=== PATIENT | male | born 1945 | race Caucasian/White ===

== ENCOUNTER → 2017-12-16 | Outpatient (CLI) | payer OTHER ==
[~2017-12-16] MED LIST: AMLO5 PO; CALC.25 PO; CLON.1 PO; MEGESTROL400 MG/10 PO; PANT40 PO; Renvela800 MG PO; TAMS.4ER PO; Zofran4 MG PO
== END | disposition home or self-care (01) ==
LOC: OLS 07:43
PROVIDERS: Physician Assistant
DX: C61 Malignant neoplasm of prostate (principal)
CPT/HCPCS: 36415; 84153

== ENCOUNTER → 2018-03-15 | Outpatient (CLI) | payer OTHER ==
[2018-03-15 08:19] LABS: BASOPHILS ABSOLUTE AUTO 0.04 K/mm3 (0.00-0.23); BASOPHILS PERCENT AUTO 1 % (0-2); EOSINOPHILS ABSOLUTE AUTO 0.03 K/mm3 (0.00-0.68); EOSINOPHILS PERCENT AUTO 0 % (0-6); Hemoglobin 10.5 g/dL (13.5-17.5); IMMATURE GRAN ABSOLUTE AUTO 0.03 K/mm3 (0.00-0.10); IMMATURE GRAN PERCENT AUTO 0 % (0-1); LYMPHOCYTES ABSOLUTE AUTO 1.11 K/mm3 (0.84-5.20); LYMPHOCYTES PERCENT AUTO 15 % (21-46); MONOCYTES ABSOLUTE AUTO 0.56 K/mm3 (0.16-1.47); MONOCYTES PERCENT AUTO 8 % (4-13); Mean Corpuscular HGB 31.2 pg (26.0-34.0); Mean Corpuscular HGB Conc 31.8 g/dL (31.5-36.5); Mean Corpuscular Volume 98 fL (80-100); Mean Platelet Volume 11.6 fL (9.1-12.4); NEUTROPHILS ABSOLUTE AUTO 5.44 K/mm3 (1.96-9.15); NEUTROPHILS PERCENT AUTO 75 % (41-73); Platelet Count 119 K/mm3 (150-400); RDW Standard Deviation 54.5 fL (35.1-46.3); Red Blood Cell Count 3.37 M/mm3 (4.30-5.90); White Blood Cell Count 7.21 K/mm3 (4.00-11.30)
[2018-03-15 08:45] LABS: Albumin, Blood 3.4 g/dL (3.4-5.0); Albumin/Globulin Ratio 0.8 (0.8-1.8); Bilirubin, Total 0.3 mg/dL (0.1-1.0); Bun/Creatinine Ratio 16.1 (12.0-20.0); Calcium, Blood 8.8 mg/dL (8.5-10.1); Creatinine, Blood 3.84 mg/dL (0.60-1.20); Globulin, Blood 4.2 g/dL (2.2-4.0); Potassium, Blood 5.2 mmol/L (3.5-5.5); Total Protein, Blood 7.6 g/dL (6.4-8.2)
== END | disposition home or self-care (01) ==
LOC: LAB EV 08:14 → LAB SHORT 08:14
PROVIDERS: Physician Assistant Medical
DX: R11.0 Nausea (principal)
CPT/HCPCS: 80053; 83690; 85025

== ENCOUNTER → 2018-03-17 | Outpatient (CLI) | payer OTHER ==
[2018-03-17 10:41] LABS: BASOPHILS ABSOLUTE AUTO 0.02 K/mm3 (0.00-0.23); BASOPHILS PERCENT AUTO 0 % (0-2); EOSINOPHILS ABSOLUTE AUTO 0.06 K/mm3 (0.00-0.68); EOSINOPHILS PERCENT AUTO 1 % (0-6); Hematocrit 32.5 % (37.0-53.0); IMMATURE GRAN ABSOLUTE AUTO 0.02 K/mm3 (0.00-0.10); IMMATURE GRAN PERCENT AUTO 0 % (0-1); LYMPHOCYTES ABSOLUTE AUTO 1.21 K/mm3 (0.84-5.20); LYMPHOCYTES PERCENT AUTO 17 % (21-46); MONOCYTES ABSOLUTE AUTO 0.69 K/mm3 (0.16-1.47); MONOCYTES PERCENT AUTO 10 % (4-13); Mean Corpuscular HGB 30.5 pg (26.0-34.0); Mean Corpuscular HGB Conc 30.8 g/dL (31.5-36.5); Mean Corpuscular Volume 99 fL (80-100); NEUTROPHILS ABSOLUTE AUTO 5.28 K/mm3 (1.96-9.15); NEUTROPHILS PERCENT AUTO 73 % (41-73); Platelet Count 119 K/mm3 (150-400); RDW Coefficient Variation 14.9 % (11.7-14.2); Red Blood Cell Count 3.28 M/mm3 (4.30-5.90); White Blood Cell Count 7.28 K/mm3 (4.00-11.30)
[2018-03-17 10:58] LABS: Albumin, Blood 3.4 g/dL (3.4-5.0); Albumin/Globulin Ratio 0.9 (0.8-1.8); Bilirubin, Total 0.4 mg/dL (0.1-1.0); Bun/Creatinine Ratio 15.7 (12.0-20.0); Calcium, Blood 8.2 mg/dL (8.5-10.1); Creatinine, Blood 3.43 mg/dL (0.60-1.20); Globulin, Blood 3.6 g/dL (2.2-4.0); Potassium, Blood 5.8 mmol/L (3.5-5.5); Uric Acid, Blood 7.6 mg/dL (3.5-7.2)
== END | disposition home or self-care (01) ==
LOC: LAB 10:24 → LAB SHORT 10:24
PROVIDERS: Internal Medicine Hematology & Oncology
DX: Z01.818 Encounter for other preprocedural examination (principal); C61 Malignant neoplasm of prostate; R33.9 Retention of urine, unspecified; D69.6 Thrombocytopenia, unspecified
CPT/HCPCS: 80053; 84550; 85025; 85730

== ENCOUNTER → 2018-03-18 | Outpatient (CLI) | payer OTHER ==
[2018-03-18 12:37] LABS: Protein, Urine Quantitative 93.1 mg/dL (0.0-11.9)
== END ==
LOC: LAB EV 05:30 → LAB SHORT 05:30
PROVIDERS: Internal Medicine Nephrology
DX: N18.4 Chronic kidney disease, stage 4 (severe) (principal); D63.1 Anemia in chronic kidney disease; N25.81 Secondary hyperparathyroidism of renal origin; E55.9 Vitamin D deficiency, unspecified; E78.00 Pure hypercholesterolemia, unspecified; R76.9 Abnormal immunological finding in serum, unspecified; R94.5 Abnormal results of liver function studies; R94.6 Abnormal results of thyroid function studies; D51.8 Other vitamin B12 deficiency anemias; D52.8 Other folate deficiency anemias; D50.9 Iron deficiency anemia, unspecified
CPT/HCPCS: 81050; 82043; 84156

== ENCOUNTER → 2018-03-21 | Outpatient (CLI) | payer OTHER | END | disposition home or self-care (01) | LOC: LAB SHORT 16:23 → LAB EV 16:23 | DX: N30.01 Acute cystitis with hematuria (principal) | CPT/HCPCS: 87086; 87147 ==

== ENCOUNTER → 2018-04-11 | Outpatient (CLI) | payer OTHER ==
[2018-04-11 17:06] LABS: Albumin, Blood 3.4 g/dL (3.4-5.0); Albumin/Globulin Ratio 1.1 (0.8-1.8); Bilirubin, Total 0.3 mg/dL (0.1-1.0); Bun/Creatinine Ratio 18.8 (12.0-20.0); Calcium, Blood 8.1 mg/dL (8.5-10.1); Creatinine, Blood 3.4 mg/dL (0.60-1.20); Globulin, Blood 3.2 g/dL (2.2-4.0); Potassium, Blood 5.8 mmol/L (3.5-5.5); Total Protein, Blood 6.6 g/dL (6.4-8.2)
== END ==
LOC: LAB SHORT 16:00 → LAB 16:00
PROVIDERS: Internal Medicine Hematology & Oncology
DX: C25.9 Malignant neoplasm of pancreas, unspecified (principal)
CPT/HCPCS: 80053; 86301

== ENCOUNTER → 2018-05-16 | Outpatient (CLI) | payer OTHER | END | disposition home or self-care (01) | LOC: LAB SHORT 10:50 → LAB 10:50 | DX: C25.9 Malignant neoplasm of pancreas, unspecified (principal) | CPT/HCPCS: 86301 ==

== ENCOUNTER → 2018-05-23 | Outpatient (CLI) | payer OTHER ==
[2018-05-23 20:27] LABS: Albumin, Blood 3.1 g/dL (3.4-5.0); Bilirubin, Total 0.3 mg/dL (0.1-1.0); Bun/Creatinine Ratio 11.3 (12.0-20.0); Calcium, Blood 8.5 mg/dL (8.5-10.1); Creatinine, Blood 3.63 mg/dL (0.60-1.20); Globulin, Blood 3.1 g/dL (2.2-4.0); Potassium, Blood 5.2 mmol/L (3.5-5.5); Total Protein, Blood 6.2 g/dL (6.4-8.2)
== END ==
LOC: LAB 09:11 → LAB SHORT 09:11
PROVIDERS: Internal Medicine Hematology & Oncology
DX: C25.9 Malignant neoplasm of pancreas, unspecified (principal)
CPT/HCPCS: 80053

== ENCOUNTER → 2018-06-20 | Outpatient (CLI) | payer OTHER ==
[2018-06-20 18:01] LABS: Bilirubin, Total 0.3 mg/dL (0.1-1.0); Bun/Creatinine Ratio 14.2 (12.0-20.0); Calcium, Blood 8.3 mg/dL (8.5-10.1); Creatinine, Blood 3.52 mg/dL (0.60-1.20); Globulin, Blood 3.1 g/dL (2.2-4.0); Potassium, Blood 5.3 mmol/L (3.5-5.5); Total Protein, Blood 6.1 g/dL (6.4-8.2)
== END ==
LOC: LAB 10:00 → LAB SHORT 10:00
PROVIDERS: Internal Medicine Hematology & Oncology
DX: C25.9 Malignant neoplasm of pancreas, unspecified (principal)
CPT/HCPCS: 80053; 86301

== ENCOUNTER → 2018-08-08 | Outpatient (CLI) | payer OTHER | END | disposition home or self-care (01) | LOC: LAB SHORT 08:45 → LAB 08:45 | DX: N18.9 Chronic kidney disease, unspecified (principal); D63.1 Anemia in chronic kidney disease | CPT/HCPCS: 36415; 85018 ==

== ENCOUNTER → 2019-02-11 | Outpatient (CLI) | payer OTHER ==
[2019-02-11 14:00] LABS: BASOPHILS ABSOLUTE AUTO 0.05 K/mm3 (0.00-0.23); BASOPHILS PERCENT AUTO 0 % (0-2); EOSINOPHILS ABSOLUTE AUTO 0.01 K/mm3 (0.00-0.68); EOSINOPHILS PERCENT AUTO 0 % (0-6); Hematocrit 37.1 % (37.0-53.0); IMMATURE GRAN ABSOLUTE AUTO 0.09 K/mm3 (0.00-0.10); IMMATURE GRAN PERCENT AUTO 1 % (0-1); LYMPHOCYTES PERCENT AUTO 10 % (21-46); MONOCYTES ABSOLUTE AUTO 2.04 K/mm3 (0.16-1.47); MONOCYTES PERCENT AUTO 13 % (4-13); Mean Corpuscular HGB 31.7 pg (26.0-34.0); Mean Corpuscular HGB Conc 32.3 g/dL (31.5-36.5); Mean Corpuscular Volume 98 fL (80-100); NEUTROPHILS ABSOLUTE AUTO 12.04 K/mm3 (1.96-9.15); NEUTROPHILS PERCENT AUTO 77 % (41-73); Platelet Count 149 K/mm3 (150-400); RDW Standard Deviation 60.8 fL (35.1-46.3); Red Blood Cell Count 3.79 M/mm3 (4.30-5.90); White Blood Cell Count 15.73 K/mm3 (4.00-11.30)
[2019-02-11 14:33] LABS: Albumin, Blood 2.9 g/dL (3.4-5.0); Albumin/Globulin Ratio 0.9 (0.8-1.8); Bilirubin, Total 1.8 mg/dL (0.1-1.0); Bun/Creatinine Ratio 6.2 (12.0-20.0); Calcium, Blood 8.7 mg/dL (8.5-10.1); Creatinine, Blood 5.52 mg/dL (0.60-1.20); Globulin, Blood 3.4 g/dL (2.2-4.0); Potassium, Blood 3.7 mmol/L (3.5-5.5); Total Protein, Blood 6.3 g/dL (6.4-8.2)
== END | disposition home or self-care (01) ==
LOC: LAB SHORT 13:56 → LAB EV 13:56
PROVIDERS: General Practice
DX: C25.9 Malignant neoplasm of pancreas, unspecified (principal)
CPT/HCPCS: 80053; 85025

== ENCOUNTER 2019-02-14 20:10 | Inpatient (IN) | payer OTHER ==
[~2019-02-14] VITALS: Ht 172.7 cm; Wt 58.3 kg
[2019-02-14] MEDS ORDERED: VALACYCLOVIR1000 MG PO (20:24)
[2019-02-14] MEDS ORDERED: SEVEC800 (20:24)
[2019-02-14 21:42] LABS: BASOPHILS ABSOLUTE AUTO 0.04 K/mm3 (0.00-0.23); BASOPHILS PERCENT AUTO 0 % (0-2); EOSINOPHILS PERCENT AUTO 0 % (0-6); Hematocrit 35.4 % (37.0-53.0); Hemoglobin 11.1 g/dL (13.5-17.5); IMMATURE GRAN ABSOLUTE AUTO 0.13 K/mm3 (0.00-0.10); IMMATURE GRAN PERCENT AUTO 1 % (0-1); LYMPHOCYTES ABSOLUTE AUTO 1.88 K/mm3 (0.84-5.20); LYMPHOCYTES PERCENT AUTO 10 % (21-46); MONOCYTES PERCENT AUTO 13 % (4-13); Mean Corpuscular HGB 30.8 pg (26.0-34.0); Mean Corpuscular HGB Conc 31.4 g/dL (31.5-36.5); Mean Corpuscular Volume 98 fL (80-100); Mean Platelet Volume 12.1 fL (9.1-12.4); NEUTROPHILS ABSOLUTE AUTO 15.34 K/mm3 (1.96-9.15); NEUTROPHILS PERCENT AUTO 77 % (41-73); Platelet Count 166 K/mm3 (150-400); RDW Coefficient Variation 16.6 % (11.7-14.2); RDW Standard Deviation 59.7 fL (35.1-46.3); White Blood Cell Count 19.89 K/mm3 (4.00-11.30)
[2019-02-14 22:02] LABS: Albumin, Blood 2.7 g/dL (3.4-5.0); Albumin/Globulin Ratio 0.7 (0.8-1.8); Bilirubin, Total 1.9 mg/dL (0.1-1.0); Calcium, Blood 8.9 mg/dL (8.5-10.1); Creatinine, Blood 6.73 mg/dL (0.60-1.20); Globulin, Blood 3.7 g/dL (2.2-4.0); Potassium, Blood 3.6 mmol/L (3.5-5.5); Total Protein, Blood 6.4 g/dL (6.4-8.2)
[2019-02-14 22:18] LABS: Acetaminophen, Random <2.0 ug/mL (10.0-30.0); Ethanol (Alcohol), Blood, Med <3 mg/dL
[2019-02-14 22:24] LABS: Salicylate <1.7 mg/dL (2.8-20.0)
[2019-02-14 22:47] LABS: Influenza A Negative (NEGATIVE); Influenza B Negative (NEGATIVE)
[2019-02-14 23:27] LABS: Source, Urine Clean Catch
[2019-02-14 23:30] LABS: Blood, Urine 5+ (Neg); Glucose Qualitative, Urine Neg (Neg); Ketones, Urine Neg (Neg); Leukocyte Esterase, Urine 1+ (Neg); Nitrite, Urine Neg (Neg); Protein, Urine 4+ (Neg); Urobilinogen, Urine NORM (Normal)
[2019-02-14 23:36] LABS: Appearance, Urine Hazy (Clear); Bilirubin, Urine 1+ (Neg); Color, Urine Amber (P-Yellow)
[2019-02-14 23:37] LABS: Bacteria Few /hpf; Hyaline Casts 25-50 /lpf (0-2); Red Blood Cells, Urine TNTC /hpf (0-2); Squamous Epithelial Cells Rare /hpf (Few)
[2019-02-14 23:51] LABS: U Amphetamine Screen Not Detected; U Barbituate Screen Not Detected; U Benzodiazapine Screen Not Detected; U Buprenorphine Screen Not Detected; U Cannabinoids Screen Not Detected; U Cocaine Screen Not Detected; U Methadone Screen Not Detected; U Methamphetamine Screen Not Detected; U Opiates Screen Not Detected; U Oxycodone Screen Not Detected; U Phencyclidine Screen Not Detected; U Propoxyphene Screen Not Detected
--- NOTE | 2019-02-15 02:59 | NUR ---
PATIENT IS A NEW ADMIT FROM ED.. THREE PERSON TRANSFER FROM [facility] TO BED. AXO 2-3, SLOW TO RESPOND. AIRBORNE PRECAUTIONS...SHINGLES. PIV INTACT IV ABX INFUSED. DENIES PAIN, SOB, AND N/V. ONE TO TWO PERSON ASSIST TO BSC. ORIENTED TO ROOM AND CALL LIGHT SYSTEM.
--- NOTE | 2019-02-15 03:34 | NUR ---
SHIFT SUMMARY PATIENT HAD NO ACUTE CHANGES OBSERVED THIS SHIFT. AXO 2-3 W/CONFUSION AND SLOW TO RESPOND. AIRBORNE PRECAUTIONS; SHINGLES. PIV REMAINS INTACT. IV ABX INFUSED. DENIES PAIN, SOB, AND N/V. VSS/AFEBRILE. HX LIVER, PROSTATE, AND PANCREATIC CANCER. DIALYSIS PORT. COOPERATIVE WITH CARE. CALL LIGHT IN REACH. BED IN LOWEST POSITION. BED ALARM ACTIVATED. WILL CONTINUE TO MONITOR UNTIL DAY SHIFT NURSE ASSUMES CARE.
[2019-02-15 06:01] LABS: BASOPHILS ABSOLUTE AUTO 0.03 K/mm3 (0.00-0.23); BASOPHILS PERCENT AUTO 0 % (0-2); EOSINOPHILS PERCENT AUTO 0 % (0-6); Hematocrit 33.4 % (37.0-53.0); Hemoglobin 10.8 g/dL (13.5-17.5); IMMATURE GRAN ABSOLUTE AUTO 0.09 K/mm3 (0.00-0.10); IMMATURE GRAN PERCENT AUTO 1 % (0-1); LYMPHOCYTES ABSOLUTE AUTO 1.62 K/mm3 (0.84-5.20); LYMPHOCYTES PERCENT AUTO 10 % (21-46); MONOCYTES PERCENT AUTO 11 % (4-13); Mean Corpuscular HGB Conc 32.3 g/dL (31.5-36.5); Mean Corpuscular Volume 96 fL (80-100); Mean Platelet Volume 11.5 fL (9.1-12.4); NEUTROPHILS ABSOLUTE AUTO 12.66 K/mm3 (1.96-9.15); NEUTROPHILS PERCENT AUTO 79 % (41-73); Platelet Count 143 K/mm3 (150-400); RDW Coefficient Variation 16.6 % (11.7-14.2); RDW Standard Deviation 58.1 fL (35.1-46.3); Red Blood Cell Count 3.48 M/mm3 (4.30-5.90)
[2019-02-15 06:16] LABS: Bun/Creatinine Ratio 7.1 (12.0-20.0); Calcium, Blood 8.7 mg/dL (8.5-10.1); Creatinine, Blood 7.29 mg/dL (0.60-1.20); Potassium, Blood 4.1 mmol/L (3.5-5.5)
--- NOTE | 2019-02-15 09:25 | NUR ---
TO DIALYSIS VIA W/C W/YELLOW GOWN ON AND MASK
--- NOTE | 2019-02-15 12:54 | NUR ---
BACK FROM DIALYSIS.
--- NOTE | 2019-02-15 17:11 | NUR ---
ALERT AND ORIENTED. SLOW TO RESPOND. FORGETFUL. UNLABORED RESPIRATIONS. VERY UNSTEADY ON FEET. LACTULOSE HELD ONCE DUE TO 3 LOOSE STOOLS. RT UPPER CHEST WITH PERMACATH. SHINGLES APPEAR TO HAVE STARTED UPPER BACK AND GO TO RT UPPER CHEST. PATIENT DENIES PAIN TO AREA. PARAMETERS FOR BLD PRESS RECEIVED. COOPERATIVE. BED IN LOW POSITION. REVIEW CALL LIGHT SYSTEM QUITE OFTEN. WILL CONTINUE TO MONITOR.
--- NOTE | 2019-02-15 17:46 | NUR ---
RN WAS IN ROOM AND ASKED PATIENT IF HE NEEDED TO USE BSC AND PT STS NO. 5 MINUTES AFTER LEAVING PT GOT UP AND WAS ATTEMPTING TO MAKE HIS WAY TO BATHROOM, ALMOST FALLING. RECEIVED ORDER FOR POSY VEST. APPLIED AND REVIEWED NEED W/PATIENT. HAVE REVIEWED MULTIPLE TIMES T/O SHIFT ON HOW TO USE CALL LIGHT.
--- NOTE | 2019-02-15 18:03 | NUR ---
TALKED TO PATIENT ABOUT 15-20 MINUTES. STS WANTS COMFORT CARE. DOES NOT WANT ANY MORE DIALYSIS. STS HAS BEEN FEELING THIS WAY FOR ABOUT 3 MONTHS. DOES NOT WANT TO TALK TO PALLIATIVE CARE. HAS ALREADY TALKED TO Julian( HIS CONFUCIANISM). WILL TALK TO . CALLED AND STS TO ORDER PALLIATIVE AND TO CANCEL AM LABS. STS WILL LET AM [facility] DOCTOR KNOW.
--- NOTE | 2019-02-15 21:11 | NUR ---
Patient was out of restraints and was coming out of the room at 2100. Nurse and i helped get him back to bed where his eliot vest was only tied on one side it appeared. Nurse and i could not gown up in time to bring pt into his room due to pt totentially falling and being a airborn patient.
--- NOTE | 2019-02-15 21:19 | NUR ---
PT FOUND UP OUT OF BED AND OUT OF JANAE VEST. PT WAS DIRECTED BACK TO BED AND RESTRINED AND BED ALARM ON.
--- NOTE | 2019-02-15 21:59 | NUR ---
PROVIDER CALLED AND INFORMED PT PULLED OUT IV AND IS REFUSING MEDS TONIGHT. PT STATED HE WANT TO AND DOES NOT WANT TO TAKE ANY MEDICATION. DR. TOLBERT IS AWARE OF PT'S WISHES AND DR. GUY WILL ASSESS PT'S MENETATION IN AM.
--- NOTE | 2019-02-16 05:34 | NUR ---
SHIFT SUMMARY PT HAS BEEN AGITATED OFF AND ON T/O SHIFT. PT CONTINUES TO STATE HE WANTS TO AND DOES NOT WANT DIALYSIS. PT HAS TRIED TO GET OUT OF BED DESPITE HAVING A JANAE VEST IN PLACE. PT IS ABLE TO TALK AND MAKE HIS NEEDS KNOWN. PT IS CURRENTLY SLEEPING AND BREATHING EASY. CALL LIGHT IN REACH AND BED ALARM ON.
[2019-02-16 06:21] LABS: Magnesium, Blood 2.7 mg/dL (1.6-2.4)
[2019-02-16 06:22] LABS: Albumin, Blood 2.7 g/dL (3.4-5.0); Anion Gap 14 mmol/L (6-16); Blood Urea Nitrogen 43 mg/dL (8-24); Bun/Creatinine Ratio 6.7 (12.0-20.0); CO2, Blood 28 mmol/L (21-32); Calcium, Blood 9.2 mg/dL (8.5-10.1); Chloride, Blood 99 mmol/L (98-108); Creatinine, Blood 6.45 mg/dL (0.60-1.20); Glomerular Filtration Rate 9 (60-); Glucose, Blood 84 mg/dL (70-99); Phosphorus, Blood 6.2 mg/dL (2.5-4.9); Potassium, Blood 3.6 mmol/L (3.5-5.5); Sodium, Blood 141 mmol/L (136-145)
--- NOTE | 2019-02-16 08:11 | NUR ---
PATIENT REFUSES ALL MEDS. PULLED OUT IV LAST NIGHT. REVIEW WHY VEST ON.AWARE WILL BE IN TO TALK ABOUT HIS WISHES. KNOWS IN [place], [place], BUT UNSURE OF NAME OF HOSPITAL. KNOWS MONTH, BUT NOT DAY. KNOWS WHO IS PRESIDENT. WILL CONTINUE TO MONITOR.
--- NOTE | 2019-02-16 11:30 | NUR ---
TALKED TO PATIENT ABOUT HIS MEDS. STS HE DOES NOT WANT. ASKED PATIENT WHAT HE DOES WANT. "WHAT WE TALKED ABOUT YESTERDAY." WE DISCUSS COMFORT CARE AGAIN. PATIENT ALERT TO; SELF, WHERE HE IS ([facility]) AND MONTH. TALKS ABOUT HIS TRUCK AND SAYS "" IN MIDDLE SENTENCE. WHEN RN ASKED HIM WHAT HE MEANS STS "UZIEL PARSONS WILL GET". ELABORATES AND SAYS HE HAS ALREADY TALKED TO [employer] ON TUESDAY ABOUT GETTING HIS TRUCK AFTER HE PASSES. PATIENT ASKS FOR CLOTHES "SO I CAN LEAVE HERE." ADVISED WILL TALK TO DR. GUY. WILL CONTINUE TO MONITOR.
--- NOTE | 2019-02-16 14:21 | NUR ---
Initial Visit: Palliative care called to see this patient today by the patient's nurse, María Elena. She reports that the patient was verbalizing that he would like to go home and . She is strongly advocating that he would like to go home. Discussed the pt's mentation and barriers to communication. Pt processes information slowly and responds slowly to questions. María Elena states that he has been consistent in his requests to go home and to over the last two days she has taken care of this patient. María Elena states that he was able to tell her the name of the current president and other orientation questions. He declined need or desire to speak with pallitative care yesterday, but she did call and request that I see the patient today. Pt does not follow directions and has continued getting up out of bed without assistance. Does not use call light. Pt has told María Elena that he has a great nephew that lives closely and he has contact with. It is unclear if anyone would be able to help this man once he got home. At the time I see him, he is sitting up in bed. He has a JANAE vest on and is restrained in that way. He is slow to respond to questions. He states his name, birthday. He states that the president is "Guru." He is able to state that this month is "february," but simply does not answer when asked what year it is. My conversation with him is direct. I tell him that his nurse has told me that he wants to go home and . He waits and states, "that is correct." I asked, "do you want hospice?" He states yes. I ask, "do you want to stop dialysis or keep dialysis?" he is slow to respond, but states, "I think I'd like to keep it." I carefully and slowly tell him that it may be possible to keep dialysis while he is enrolled in hospice and ask if this is what he wants, and he states, "yes." ([facility] often offers pt's to keep dialysis if they have a different diagnosis for end of life than ESRD). Clearly, I explain that his care can change here at the hospital if he would like to comfort care. I tell him that labs will stop being drawn and vitals would be stopped. He states, "I think I better keep those." I asked again what pt would like to do at this time and he states, "I want to ." This was discussed with Dr. Yarbrough and Lisa Cardoso. I relayed my conversation. Ability for this patient to make decisions now is questionable. María Elena has spent more time with him than anyone has. I do think that the patient is ready to at this time. I do think that the patient understands that he wants to . Will assist in arrangments and conversations to support his and his family's decisions. Overall, I have the feeling that he would like hospice at home, does not understand or want comfort care. Being this situation, family will likely need to be consulted for decisions unless patient can demonstrate stronger cognitive ability. The window for this opportunity may have passed to have a good conversation, as it seemed he was most clear yesterday evening when the provider was unable to reassess. Will remain available.
--- NOTE | 2019-02-16 18:45 | NUR ---
ALERT TO SELF, SOMETIMES TO MONTH, AND WHERE HE IS. TALKS ABOUT DYING MULTIPLE TIMES. FEW VISITORS. VERY POOR APPETITE. REFUSED MEDS IN AM, BUT TOOK SOME LATER IN DAY. UNSTEADY ON FEET. RESTRAINTS RENEWED. PATIENT LET RN RESTART IV FOR ANTIBIOTICS. UNLABORED RESPIRATIONS. VERY SLOW TO RESPOND. BUTTOCK RED W/TWO VERY TINY POSSIBLE BREAKDOWNS. CALAZINE AND MEPILEX APPLIED. WILL CONTINUE TO MONITOR.
--- NOTE | 2019-02-17 04:46 | NUR ---
*SHIFT SUMMARY* PATIENT IS ALERT TO SELF AND PLACE. IN CONTACT PRECAUTIONS FOR SHINGLES ON RIGHT SHOULDER/CHEST. PT IN JANAE VEST FOR PT SAFETY. ORDER WILL NEED TO BE RENEWED AT 1700. PT HAS PERMA CATH ON RIGHT UPPER CHEST. PT HAS HAD SEVERAL LOOSE BOWEL MOVEMENTS, INCONTINENT. PT DOES NOT CALL FOR HELP APPROPRIATELY. PT SLEPT WELL THROUGHOUT THE NIGHT. VITAL SIGNS STABLE. CALL LIGHT IN REACH, BED LOWERED AND LOCKED. BED ALARM ON.
[2019-02-17 06:09] LABS: Hematocrit 38.5 % (37.0-53.0)
[2019-02-17 06:49] LABS: Albumin, Blood 2.6 g/dL (3.4-5.0); Anion Gap 15 mmol/L (6-16); Blood Urea Nitrogen 61 mg/dL (8-24); Bun/Creatinine Ratio 7.2 (12.0-20.0); CO2, Blood 27 mmol/L (21-32); Calcium, Blood 9.3 mg/dL (8.5-10.1); Chloride, Blood 102 mmol/L (98-108); Glomerular Filtration Rate 7 (60-); Glucose, Blood 79 mg/dL (70-99); Phosphorus, Blood 8.2 mg/dL (2.5-4.9); Potassium, Blood 3.9 mmol/L (3.5-5.5); Sodium, Blood 144 mmol/L (136-145)
--- NOTE | 2019-02-17 16:34 | NUR ---
SHIFT SUMMARY PT MORE A&O AT SHIFT START, CONTINUES TO BE MORE CONFUSED AND FORGETFUL TOWARD AFTERNOON. SISTER AND 2 VISITORS THIS SHIFT FOR 1-2 HOURS, PT SLEEPING SINCE, CONTINUES TO ATTEMPT TO AMBULATE W/OUT ASSISTANCE AND DOOR HAS TO REMAIN CLOSED D/T ISO. PT APPEARS TO BE SLEEPING AT THIS TIME, WILL CONT TO MONITOR UNTIL REPORT GIVEN TO KYRIE RN.
--- NOTE | 2019-02-17 17:59 | NUR ---
XFER TO 351 PT XFER'D TO 351 @ 4493, REPORT GIVEN TO BLESSING GUTIÉRREZ; SISTER (JOHN) NOTIFIED @1800 . PT BEDRESTING EATING DINNER, BED ALARM ON.
[2019-02-18 05:42] LABS: Hematocrit 41.8 % (37.0-53.0); Hemoglobin 13.1 g/dL (13.5-17.5)
[2019-02-18 06:18] LABS: Magnesium, Blood 3.4 mg/dL (1.6-2.4)
[2019-02-18 06:22] LABS: Albumin, Blood 2.8 g/dL (3.4-5.0); Anion Gap 18 mmol/L (6-16); Blood Urea Nitrogen 77 mg/dL (8-24); Bun/Creatinine Ratio 7.5 (12.0-20.0); CO2, Blood 26 mmol/L (21-32); Calcium, Blood 9.8 mg/dL (8.5-10.1); Chloride, Blood 104 mmol/L (98-108); Glomerular Filtration Rate 5 (60-); Glucose, Blood 90 mg/dL (70-99); Potassium, Blood 3.6 mmol/L (3.5-5.5); Sodium, Blood 148 mmol/L (136-145)
--- NOTE | 2019-02-18 07:16 | NUR ---
alert, keeps reaching to touch self, easily redirected and cooperative but goes right back to "tangling" himself up again as soon as alowed to, call light in reach, saline locked, walking rounds completed with day staff
--- NOTE | 2019-02-18 17:46 | NUR ---
SHIFT SUMMARY PATIENT PLEASANT. HAS CLINIMIX RUNNING CURRENTLY. HE HAS WRIST RESTRAINTS ON TO PROTECT HIS LINES AND TUBE, WELL HIS SELF. HE WAS WRAPPING HIS TUBING AROUND HIS ARMS AND WRISTS UNTIL HE WAS TIED UP. NO ACUTE CONCERNS FROM THE FAMILY. PATIENT IS PLEASANTLY CONFUSED, BUT COOPERATIVE. DIALYSIS TODAY.
[2019-02-19 05:14] LABS: Hematocrit 40.5 % (37.0-53.0); Hemoglobin 12.5 g/dL (13.5-17.5)
[2019-02-19 05:42] LABS: Albumin, Blood 2.6 g/dL (3.4-5.0); Anion Gap 13 mmol/L (6-16); Blood Urea Nitrogen 51 mg/dL (8-24); Bun/Creatinine Ratio 7.1 (12.0-20.0); CO2, Blood 25 mmol/L (21-32); Calcium, Blood 9.6 mg/dL (8.5-10.1); Chloride, Blood 106 mmol/L (98-108); Creatinine, Blood 7.14 mg/dL (0.60-1.20); Glomerular Filtration Rate 8 (60-); Glucose, Blood 104 mg/dL (70-99); Phosphorus, Blood 6.1 mg/dL (2.5-4.9); Potassium, Blood 4.1 mmol/L (3.5-5.5); Sodium, Blood 144 mmol/L (136-145)
[2019-02-19 05:43] LABS: Magnesium, Blood 2.9 mg/dL (1.6-2.4)
--- NOTE | 2019-02-19 06:09 | NUR ---
SHIFT SUMMARY PT IS A 73 Y/O MALE, ADMITTED FOR ACUTE ENCEPHALOPATHY. HE IS A&O X 2, WITH SOME GARBLED SPEECH IN THE BEGINNING OF THE NIGHT THAT CLEARED UP BY THE MORNING. THE PT APPEARS MUCH MORE ALERT AND CLEAR THIS MORNING, AND IS COOPERATIVE WITH CARE. HE REMAINED ON CONTINUOUS CLINIMIX THROUGH THE NIGHT AT 50 ML/HOUR. THE PT DENIED ANY COMPLAINTS OF PAIN, NAUSEA OR SOB DURING THE NIGHT. VITALS REMAINED STABLE DURING THE NIGHT. NO OTHER ACUTE CHANGES IN PT CONDITION NOTED. WILL CONTINUE TO MONITOR AND TREAT PER EMAR.
--- NOTE | 2019-02-19 21:09 | NUR ---
SHIFT SUMMARY: PT APPEARS TO BE RETURNING TO [facility] FOR MENTATION. HE IS COOPERATIVE WITH CARES AND ABLE TO FOLLOW DIRECTION. SBA TO BSC. DIALYSIS COMPLETED IN THE ROOM THIS AFTERNOON. TOLERATED WELL. HE HAS DENIED PAIN T/O DAY. HE IS ABLE TO MAKE NEEDS KNOWN AND UTILIZES CALL LIGHT APPROP. PLAN IS FOR ANOTHER ROUND OF DIALYSIS TOMORROW.
--- NOTE | 2019-02-20 05:28 | NUR ---
SHIFT SUMMARY PT SLEEPING, RESTING QUIETLY AT START OF SHIFT. DENIED NEEDS. APPEARED WEAK AND TIRED. HX OF PANCREATIC CANCER AND ESRD. RECEIVING DIALYSIS DAILY FOR ACYCLOVIR LEVELS; NO FLUID TAKEN OFF. PER REPORT, IN CONTACT ISOLATION FOR SHINGLES. 1P ASSIST TO BSC; VOIDED SM AMT WITH SM SOFT BM. CALLS FOR ASSIST NEEDED.
[2019-02-20 05:33] LABS: Hematocrit 38.9 % (37.0-53.0); Hemoglobin 12.3 g/dL (13.5-17.5)
[2019-02-20 05:55] LABS: Albumin, Blood 2.4 g/dL (3.4-5.0); Anion Gap 11 mmol/L (6-16); Blood Urea Nitrogen 44 mg/dL (8-24); Bun/Creatinine Ratio 8.1 (12.0-20.0); CO2, Blood 28 mmol/L (21-32); Calcium, Blood 8.5 mg/dL (8.5-10.1); Chloride, Blood 97 mmol/L (98-108); Creatinine, Blood 5.42 mg/dL (0.60-1.20); Glomerular Filtration Rate 11 (60-); Glucose, Blood 100 mg/dL (70-99); Magnesium, Blood 2.7 mg/dL (1.6-2.4); Phosphorus, Blood 4.4 mg/dL (2.5-4.9); Sodium, Blood 136 mmol/L (136-145)
--- NOTE | 2019-02-20 08:42 | NUR ---
SPOKE WITH [facility] PALLIATIVE CARE RN AND REQUESTED PT TO BE SEEN TODAY. ABDIEL RN SPOKE WITH THE PATIENT YESTERDAY AND WILL FOLLOW UP TODAY.
--- NOTE | 2019-02-20 12:33 | NUR ---
PT IS CURRENTLY IN DIALYSIS.
--- NOTE | 2019-02-20 15:45 | NUR ---
Met with Shae this afternoon as nsg and HD report that he has voiced not wanting ton continue HD treatments. Shae is awake in his room. He reports that he is feeling better and looking forward to going home tomorrow. He states he wants to continue HD treatments on -Tue as an outpatient at this time. He did state that he has stage IV pancreatic cancer and when his cancer advances to the point where his quality of life is not acceptable to him that he will consider stopping HD. He knows that stopping HD will mean that he will pass away in a shorter amount of time. Right now he lives alone and states that he is fairly independent and gets assistance from his sister when needed. Dr. Lagos was in to see pt and plans to discharge him tomorrow. Pt voices to requests and is happy with plan to dc tomorrow and continue HD treatments at [facility].
--- NOTE | 2019-02-20 18:16 | NUR ---
SHIFT SUMMARY DIALYSIS DAILY FOR PAST SEVERAL DAYS. PANCREATIC CANCER. STANDBY ASSIST TO BATHROOM. VOMITING X1 THIS A.M. A AND OX4. WITHDRAWN. DENIES ANY PAIN CONCERNS. PALLIATIVE CARE CONSULT COMPLETED TODAY. DECREASED PO INTAKE. POSSIBLE DC TOMORROW. LAVELL PATIENT.
--- NOTE | 2019-02-21 05:32 | NUR ---
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 PT AAOX3 AND COOPERATIVE WITH CARE. DENIES PAIN, SOB, N/V. PT MENTATION SEEMS CLEAR AND HE HAS CALLED FOR ASSISTANCE APPROPRIATELY THUS FAR. STANDBY ASSIST TO THE BATHROOM. ACYCLOVIR LEVELS STILL PENDING. VSS, WILL CONTINUE TO MONITOR.
[2019-02-21 05:33] LABS: Hematocrit 39.1 % (37.0-53.0); Hemoglobin 12.4 g/dL (13.5-17.5)
[2019-02-21 05:56] LABS: Albumin, Blood 2.4 g/dL (3.4-5.0); Anion Gap 11 mmol/L (6-16); Blood Urea Nitrogen 44 mg/dL (8-24); Bun/Creatinine Ratio 8.3 (12.0-20.0); CO2, Blood 30 mmol/L (21-32); Calcium, Blood 8.3 mg/dL (8.5-10.1); Chloride, Blood 98 mmol/L (98-108); Creatinine, Blood 5.28 mg/dL (0.60-1.20); Glomerular Filtration Rate 11 (60-); Glucose, Blood 92 mg/dL (70-99); Magnesium, Blood 2.6 mg/dL (1.6-2.4); Phosphorus, Blood 5.9 mg/dL (2.5-4.9); Potassium, Blood 4.5 mmol/L (3.5-5.5); Sodium, Blood 139 mmol/L (136-145)
--- NOTE | 2019-02-21 14:31 | NUR ---
UPDATE PT IS AWAITING DISCHARGE. HE IS UP IN HIS ROOM, GETTING DRESSED IN TO HIS OWN CLOTHING.
--- NOTE | 2019-02-21 14:54 | NUR ---
DISCHARGE NOTE PT DISCHARGED VIA W/C POV WITH FRIEND (KIM) TO HOME. PT VERBALIZED UNDERSTANDING OF MAKING A FOLLOW UP APPT WITH JOHN PÉREZ AND DR. MONTE. RX FAXED TO [facility]. NO NEW MEDICATIONS PRESCRIBED. ALL BELONGINGS SENT WITH PATIENT AT TIME OF DISCHARGE.
== END 2019-02-21 15:00 | disposition home or self-care (01) | DRG 91 ==
LOC: ER 20:10 → MEDS 02-15 00:47 → ENPENDDIS 02-21 10:18 → MEDS 02-21 15:00
PROVIDERS: Emergency Medicine; Internal Medicine Nephrology; ADMIT Internal Medicine
PROC: 5A1D70Z Performance of Urinary Filtration, Intermittent, Less than 6 Hours Per Day (ICD-10-PCS; principal; 2019-02-18)
PROC: 5A1D70Z Performance of Urinary Filtration, Intermittent, Less than 6 Hours Per Day (ICD-10-PCS; 2019-02-20)
DX: G92 Toxic encephalopathy (principal); N18.6 End stage renal disease; C25.9 Malignant neoplasm of pancreas, unspecified; C78.7 Secondary malignant neoplasm of liver and intrahepatic bile duct; I12.0 Hypertensive chronic kidney disease with stage 5 chronic kidney disease or end stage renal disease; C79.82 Secondary malignant neoplasm of genital organs; E87.0 Hyperosmolality and hypernatremia; K72.90 Hepatic failure, unspecified without coma; Z51.5 Encounter for palliative care; Z99.2 Dependence on renal dialysis; T37.5X5A Adverse effect of antiviral drugs, initial encounter; Z66 Do not resuscitate; E83.39 Other disorders of phosphorus metabolism; B02.9 Zoster without complications; E86.9 Volume depletion, unspecified; D63.1 Anemia in chronic kidney disease
CPT/HCPCS: 36415; 51701; 70450; 71046; 80048; 80053; 80069; 81001; 82140; 82607; 82746; 83735; 85014; 85018; 85025; 87086; 87804; 97161; 99285-25; G0480; J0696; J1644; J2405; J7050